=== PATIENT | female | born 1970 | race Caucasian/White ===

== ENCOUNTER 2023-08-17 06:26 | Day surgery (SDC) | payer OTHER, SELFPAY ==
[2023-07-20 11:14] VITALS: BMI 28.2
[2023-07-20 11:55] LABS: Hematocrit 45.9 % (37.0-47.0); Mean Corp Hgb Conc. 32.7 g/dL (33.0-37.0); Mean Corpuscular Hgb 31.1 pg (27.0-31.0); Mean Corpuscular Volume 95.2 fL (81.0-99.0); Mean Platelet Volume 10.3 fL (7.4-10.4); Platelet Count 277 10^3/uL (130-400); Red Blood Cell Count 4.82 10^6/uL (4.20-5.40); Red Cell Dist. Width 12.4 % (11.5-14.5); White Blood Cell Count 7.7 10^3/uL (4.8-10.8)
[2023-07-20 12:46] LABS: Blood Urea Nitrogen 8 mg/dl (7-17); Calcium 8.8 mg/dl (8.4-10.2); Carbon Dioxide 26 mmol/L (22-30); Chloride 103 mmol/L (98-107); Estimated Creatinine Clearance 80 ml/min; Glucose 98 mg/dl (70-99); Potassium 3.9 mmol/L (3.5-5.1); Sodium 136 mmol/L (135-145); eGFR > 60.00
[2023-08-17] VITALS (8 sets, daily range): BP systolic 123–147; BP diastolic 73–83; BMI 28.2
[2023-08-17] MEDS: CYSVIEW KIT 100 MG INTRAVES (12:40)
[2023-08-17] MEDS: DILAUDID 0.25 MG IV ×2 (14:09→14:20)
[2023-08-17] MEDS: Pyridium 200 MG PO (15:05)
== END 2023-08-17 15:35 | disposition home or self-care (01) ==
LOC: SDS 06:26
PROVIDERS: ATTENDING PHYSICIAN Specialist; FAMILY PHYSICIAN Family Medicine; OTHER PHYSICIAN Internal Medicine
DX: Z85.51 Personal history of malignant neoplasm of bladder (principal); Z92.21 Personal history of antineoplastic chemotherapy
CPT/HCPCS: 52204; C9738; 88305; 36415; 80048; 85027; A9589

== ENCOUNTER 2023-11-11 06:16 | Day surgery (SDC) | payer OTHER, SELFPAY ==
[2023-10-28 08:33] VITALS: BMI 27.4
[2023-10-28 10:16] LABS: Urine Albumin Negative (Neg - Trace); Urine Bilirubin Negative (Negative); Urine Character Clear (Clear); Urine Color Yellow; Urine Glucose Negative (Negative); Urine Ketone Trace (Negative); Urine Leukocyte 2+ (Negative); Urine Nitrite Negative (Negative); Urine Occult Blood 1+ (Negative); Urine Specific Gravity 1.015 (<1.030); Urine Urobilinogen Negative (Neg - 1+)
[2023-10-28 10:22] LABS: Hematocrit 45.7 % (37.0-47.0); Hemoglobin 14.4 g/dL (12.0-16.0); Mean Corp Hgb Conc. 31.5 g/dL (33.0-37.0); Mean Corpuscular Hgb 29.4 pg (27.0-31.0); Mean Corpuscular Volume 93.3 fL (81.0-99.0); Mean Platelet Volume 10.2 fL (7.4-10.4); Platelet Count 275 10^3/uL (130-400); Red Cell Dist. Width 14.8 % (11.5-14.5); White Blood Cell Count 6.9 10^3/uL (4.8-10.8)
[2023-10-28 10:28] LABS: INR 0.95; PT 12.5 Sec (11.4-14.6)
[2023-10-28 10:29] LABS: APTT 25.1 Sec (23.4-35.0)
[2023-10-28 10:45] LABS: Urine Granular Cast 0-2 /LPF (0); Urine Mucus Few; Urine Squamous Cell >30 /LPF (Few)
[2023-10-28 10:46] LABS: Urine Red Blood Cell 0-2 /HPF (0-2); Urine White Cell 21-25 /HPF (0-5)
[2023-10-28 10:47] LABS: Urine Bacteria Moderate (Negative)
[2023-10-28 12:06] LABS: Blood Urea Nitrogen 9 mg/dl (7-17); Carbon Dioxide 27 mmol/L (22-30); Chloride 104 mmol/L (98-107); Estimated Creatinine Clearance 93 ml/min; Glucose 66 mg/dl (70-99); Potassium 3.6 mmol/L (3.5-5.1); Sodium 138 mmol/L (135-145); eGFR > 60.00
--- NOTE | 2023-11-04 14:55 | PTCARENOTE ---
Abnormal urinalysis (WBC 21-25) collected on 10/28/23; Kaykay at 's office was notified.
[2023-11-11] VITALS (12 sets, daily range): BP systolic 129–155; BP diastolic 71–92; BMI 27.4
[2023-11-11] MEDS: NORMOSOL-R 1000 IV (07:17)
[2023-11-11] MEDS: CYSVIEW KIT 100 MG INTRAVES (07:30)
--- NOTE | 2023-11-11 08:07 | PTCARENOTE ---
Patient had cystview instilled and tolerated the procedure well. Patient had slight discomfort with the french insertion. After french patient stated that she was fine and had no pain. Cystview medication instilled. Will monitor patient.
[2023-11-11] MEDS: DILAUDID 0.25 MG IV ×3 (09:42→10:19)
[2023-11-11] MEDS: SYRINGE NON-PUMP 50 ML IRRIG ×2 (09:51→09:52)
[2023-11-11] MEDS: SYRINGE NON-PUMP 50 MG IRRIG ×2 (09:51→09:52)
[2023-11-11] MEDS: Pyridium 200 MG PO (10:21)
== END 2023-11-11 12:05 | disposition home or self-care (01) ==
LOC: SDS 06:16
PROVIDERS: ATTENDING PHYSICIAN Specialist; FAMILY PHYSICIAN Internal Medicine; OTHER PHYSICIAN Internal Medicine; OTHER PHYSICIAN Internal Medicine Endocrinology, Diabetes & Metabolism
DX: C67.1 Malignant neoplasm of dome of bladder (principal)
CPT/HCPCS: 52204; C9738; 88307; 36415; 80048; 81003; 81015; 85027; 85610; 85730; 93005; A9589

== ENCOUNTER 2024-04-13 06:27 | Day surgery (SDC) | payer OTHER, SELFPAY ==
[2024-04-10 09:26] LABS: % Basophils 0.7 % (0-2); % Eosinophils 3.2 % (0-6); % Immature Granulocytes 0.8 % (0-0.5); % Lymphocytes 28.8 % (20.5-51.1); % Monocytes 8.8 % (1.7-9.3); % Neutrophils 57.7 % (42.2-75.2); Absolute Basophils 0.1 10^3/uL (0-0.2); Absolute Eosinophils 0.2 10^3/uL (0-0.7); Absolute Immature Granulocytes 0.1 10^3/uL (0-0.05); Absolute Monocytes 0.6 10^3/uL (0.1-0.6); Absolute Neutrophils 4.1 10^3/uL (1.4-6.5); Hematocrit 45.3 % (37.0-47.0); Hemoglobin 14.9 g/dL (12.0-16.0); Mean Corp Hgb Conc. 32.9 g/dL (33.0-37.0); Mean Corpuscular Hgb 30.8 pg (27.0-31.0); Mean Corpuscular Volume 93.6 fL (81.0-99.0); Mean Platelet Volume 9.6 fL (7.4-10.4); Nucleated Red Blood Cells % 0 %; Platelet Count 262 10^3/uL (130-400); Red Blood Cell Count 4.84 10^6/uL (4.20-5.40); Red Cell Dist. Width 15.5 % (11.5-14.5); White Blood Cell Count 7.1 10^3/uL (4.8-10.8)
[2024-04-10 09:40] LABS: APTT 24.9 Sec (23.4-35.0); INR 0.92; PT 12.2 Sec (11.4-14.6)
[2024-04-10 10:27] LABS: Blood Urea Nitrogen 13 mg/dl (7-17); Calcium 9.3 mg/dl (8.4-10.2); Carbon Dioxide 30 mmol/L (22-30); Chloride 101 mmol/L (98-107); Glucose 85 mg/dl (70-99); Potassium 3.9 mmol/L (3.5-5.1); Sodium 141 mmol/L (135-145); eGFR > 60.00
[2024-04-13] VITALS (7 sets, daily range): BP systolic 125–156; BP diastolic 69–94; BMI 27.4
[2024-04-13] MEDS: CYSVIEW KIT 100 MG INTRAVES (07:51)
--- NOTE | 2024-04-13 08:25 | SUR.OPER ---
Patient had cystview instilled at 0810 this am without complications. [place] insertion without complications. Patient instructed to hold bladder and not empty it. Will monitor patient.
[2024-04-13] MEDS: SOLU-CORTEF 100 MG IV (08:33)
[2024-04-13] MEDS: NORMOSOL-R/PLASMALYTE-A 1000 IV (08:45)
[2024-04-13] MEDS: Pyridium 200 MG PO (10:12)
== END 2024-04-13 11:06 | disposition home or self-care (01) ==
LOC: SDS 06:27
PROVIDERS: ATTENDING PHYSICIAN Specialist; FAMILY PHYSICIAN Family Medicine
DX: C67.9 Malignant neoplasm of bladder, unspecified (principal); N32.81 Overactive bladder
CPT/HCPCS: 52204; C9738; 88305; 88307; 36415; 80048; 85025; 85610; 85730; A9589

== ENCOUNTER 2024-07-06 06:23 | Day surgery (SDC) | payer OTHER, SELFPAY ==
[2024-07-06] VITALS (7 sets, daily range): BP systolic 115–144; BP diastolic 64–86; BMI 29.7
[2024-07-06] MEDS: CYSVIEW KIT 100 MG INTRAVES (08:05)
[2024-07-06] MEDS: ROXICODONE 5 MG PO (10:57)
== END 2024-07-06 11:07 | disposition home or self-care (01) ==
LOC: SDS 06:23
PROVIDERS: ATTENDING PHYSICIAN Specialist
DX: N30.20 Other chronic cystitis without hematuria (principal); Z85.51 Personal history of malignant neoplasm of bladder
CPT/HCPCS: 52204; C9738; 88305; 93005; A9589

== ENCOUNTER → 2024-12-26 12:37 | Outpatient (REF) | payer OTHER, SELFPAY | LOC: MRI 12:37 | PROVIDERS: ATTENDING PHYSICIAN Neurological Surgery | DX: M51.16 Intervertebral disc disorders with radiculopathy, lumbar region (principal) | CPT/HCPCS: 72148 ==